=== PATIENT | male | born 2005 | race African-American/Black ===

== ENCOUNTER 2024-04-27 05:19 | Emergency (ER) | payer OTHER, SELFPAY ==
[2024-04-27 06:07] LABS: Absolute Eosinophils 0.1 K/uL (0-0.5); Absolute Lymphocytes (CBC) 2.3 K/uL (0.7-4.9); Absolute Monocytes 0.3 K/uL (0.1-1.3); Basophils % 0.7 % (0-1.3); Eosinophils % 2.1 % (0-4.4); Hematocrit 45.1 % (39.6-49.0); Hemoglobin 15.3 g/dL (13.6-17.9); Lymphocytes % 48.4 % (15.3-44.8); MCH 27.2 pg (27.0-35.0); MCV 80.1 fL (80-100); MPV 8.2 fL (7.6-11.3); Monocytes % 6.7 % (3.3-12.3); Neutrophils % 42.1 % (41.7-73.7); Nucleated Red Blood Cells % 0.2 % (0-0); Platelets 243 thou/uL (152-406); RBC Red Blood Cell Count 5.63 M/uL (4.33-5.43); Red Cell Distribution Width 13.2 % (12.1-15.2)
[2024-04-27 06:19] LABS: PT Prothrombin Time 12.3 SECONDS (9.4-12.5); PTT, Activated Partial Thromb 31.7 SECONDS (24.3-36.9); Protime INR 1.1
[2024-04-27 06:30] LABS: ALT/SGPT 16 U/L (16-61); AST/SGOT 12 U/L (15-37); Albumin 3.9 g/dL (3.4-5.0); Albumin/Globulin Ratio 1.1 (1.1-1.8); Alkaline Phosphatase 95 U/L (45-117); Anion Gap 7.8 mEq/L (5.0-15.0); BUN Blood Urea Nitrogen 8 mg/dL (7-18); Bicarbonate 28 mEq/L (21-32); Bilirubin Direct 0.2 mg/dL (0-0.2); Bilirubin Indirect, Calculated 0.4 mg/dL (0.2-0.8); Bilirubin Total 0.6 mg/dL (0.2-1.0); Globulin 3.7 g/dL (2.3-3.5); Glomerular Filtration Rate 108 ml/min (=/>90); Glucose Level 95 mg/dL (74-106); Potassium 3.8 mEq/L (3.5-5.1); Protein, Total 7.6 g/dL (6.4-8.2); Sodium Level 139 mEq/L (136-145)
[2024-04-27 07:57] LABS: Specific Gravity 1.008 (1.005-1.030); Urine Bilirubin NEGATIVE (Negative); Urine Blood Negative (Negative); Urine Clarity Clear (Clear); Urine Color Light-Yellow (Yellow); Urine Glucose NEGATIVE (Negative); Urine Ketones NEGATIVE (Negative); Urine Microscopic Reflex YN NO UMIC; Urine Nitrite NEGATIVE (Negative); Urine Protein NEGATIVE (Negative); Urine Urobilinogen Normal (Normal)
[2024-04-27 08:05] LABS: Barbiturates NEGATIVE (NEGATIVE); Benzodiazepines NEGATIVE (NEGATIVE); Cocaine NEGATIVE (NEGATIVE); METHAMPHETAM NEGATIVE (NEGATIVE); Methadone NEGATIVE (NEGATIVE); Opiates NEGATIVE (NEGATIVE); Phencyclidine NEGATIVE (NEGATIVE); THC Cannibis POSITIVE (NEGATIVE)
--- NOTE | 2024-04-27 14:46 | EDPHYS ---
Physician Documentation [facility] Name: Demetrius Blanca Age: 19 yrs Sex: Male : 2005 Arrival Date: 04/27/2024 Time: 05:19 Bed 19 Private MD: ED Physician Jason Ordoñez HPI: 04/27 05:34 This 19 yrs old Black Male presents to ER via Unassigned with complaints of Depression sp4 , suicidal ideation . 05:42 19-year-old male presents with complaint of depression with suicidal ideation.. sp4 Historical: - Allergies: 05:19 No Known Allergies; lg3 - Home Meds: 05:19 None [Active]; lg3 - PMHx: 05:19 None; lg3 - PSHx: 05:19 None; lg3 - Immunization history:: Adult Immunizations up to date. - Infectious Disease History:: Denies. - Family history:: not pertinent. - Social history:: Smoking status: Reported history of juuling and/or vaping. Patient uses alcohol, but reports only rare drinking. Patient/guardian denies using street drugs. ROS: 05:42 Constitutional: Negative for fever, chills, and weight loss, positive for depression sp4 and suicidal ideation 05:42 All other systems are negative, Exam: 05:42 Constitutional: This is a well developed, well nourished patient who is awake, alert, sp4 and in no acute distress. Head/Face: Normocephalic, atraumatic. Eyes: Pupils equal round and reactive to light, extra-ocular motions intact. Lids and lashes normal. Conjunctiva and sclera are not injected. Cornea within normal limits. Periorbital areas with no swelling, redness, or edema. ENT: Nares patent. No nasal discharge, no septal abnormalities noted. Tympanic membranes are normal and external auditory canals are clear. Oropharynx with no redness, swelling, or masses, exudates, or evidence of obstruction, uvula midline. Mucous membranes moist. Neck: Trachea midline, no thyromegaly or masses palpated, and no cervical lymphadenopathy. Supple, full range of motion without nuchal rigidity, or vertebral point tenderness. Chest/axilla: Normal chest wall appearance and motion. Nontender with no deformity. No lesions are appreciated. Cardiovascular: Regular rate and rhythm with a normal S1 and S2. No gallops, murmurs, or rubs. Normal PMI, no JVD. No pulse deficits. Respiratory: Lungs have equal breath sounds bilaterally, clear to auscultation and percussion. No rales, rhonchi or wheezes noted. No increased work of breathing, no retractions or nasal flaring. Abdomen/GI: Soft, with normal bowel sounds. No distension or tympany. No guarding or rebound. No evidence of tenderness throughout. Back: No spinal tenderness. No costovertebral tenderness. Skin: Warm, dry with normal turgor. Normal color with no rashes, no lesions, and no evidence of cellulitis. MS/ Extremity: Pulses equal, no cyanosis. Neurovascular intact. Full, normal range of motion. Neuro: Awake and alert, GCS 15, oriented to person, place, time, and situation. Cranial nerves II-XII grossly intact. Motor strength 5/5 in all extremities. Sensory grossly intact. Psych: Awake, alert, with orientation to person, place and time. Behavior, mood, and affect are within normal limits 06:50 ECG was reviewed by the Attending Physician. EKG 0609 normal sinus rhythm rate 60. sp4 Vital Signs: 05:19 BP 116 / 74; Pulse 74; Resp 16 S; Temp 98.6(O); Pulse Ox 99% on R/A; Weight 70.31 kg lg3 (R); Height 5 ft. 11 in. (R); Pain 0/10; 16:10 BP 121 / 69; Pulse 79; Resp 16; Temp 98.4; Pulse Ox 99% ; bp 16:28 BP 114 / 72; Pulse 60; Resp 18; Temp 98.1; Pulse Ox 98% on R/A; nh2 05:19 Body Mass Index 21.62 (70.31 kg, 180.34 cm) lg3 05:19 Pain Scale: Adult lg3 Nichole Coma Score: 05:42 Eye Response: spontaneous(4). Motor Response: obeys commands(6). Verbal Response: sp4 oriented(5). Total: 15. MDM: 05:43 Differential diagnosis: drug withdrawal. acute psychotic break, depression, psychosis sp4 secondary to non-compliance. Data reviewed: vital signs, nurses notes, old medical records, lab test result(s). Consideration of Admission/Observation Escalation of care including admission/observation considered. ED course: Patient awaiting for [place] evaluation. 06:50 Transition of care: After a detail discussion of the patient's case, care is sp4 transferred to Ford Kelly MD. 07:14 Medical Screening Exam initiated rt 07:31 Transition of care: After a detail discussion of the patient's case, care is sp4 transferred to Jason Ordoñez MD. 14:46 Management of patient was discussed with the following: Behavioral Health Provider: rt Recommends inpatient hospitalization. 04/27 05:35 Order name: Acetaminophen; Complete Time: 07: sp4 04/27 05:35 Order name: Basic Metabolic Panel; Complete Time: : sp4 04/27 05:35 Order name: CBC with Diff; Complete Time: sp4 04/27 05:35 Order name: ETOH Level; Complete Time: : sp4 04/27 05:35 Order name: Hepatic Function; Complete Time: : sp4 04/27 05:35 Order name: PT-INR; Complete Time: sp4 04/27 05:35 Order name: Ptt, Activated; Complete Time: : sp4 04/27 05:35 Order name: Salicylate; Complete Time: 07: sp4 04/27 05:35 Order name: Urinalysis w/ reflexes; Complete Time: 08:52 sp4 04/27 05:35 Order name: Urine Drug Screen; Complete Time: 08:52 sp4 04/27 05:35 Order name: EKG; Complete Time: 05:35 sp4 04/27 05:35 Order name: EKG - Nurse/Tech; Complete Time: 06:22 sp4 04/27 05:35 Order name: IV Saline Lock; Complete Time: 05:58 sp4 04/27 05:35 Order name: Labs collected and sent; Complete Time: 05:58 sp4 04/27 05:35 Order name: Suicide Precautions; Complete Time: 06:23 sp4 04/27 05:35 Order name: Suicide Screening ([place]); Complete Time: 06:23 sp4 EC:09 Rate is 60 beats/min. Rhythm is regular, Normal Sinus Rhythm. QRS [place] is Normal. NM sp4 interval is normal. QRS interval is normal. QT interval is normal. No Q waves. T waves are Normal. No ST changes noted. Clinical impression: Normal ECG. Interpreted by me. Reviewed by me. Administered Medications: No medications were administered Disposition Summary: 04/27/24 14:45 Transfer Ordered Notes: Transfer Location: Psych Facility rt Reason: Higher level of care rt Condition: Stable rt Problem: new rt Symptoms: are unchanged rt Accepting Physician: (04/27/24 16:37) bp Diagnosis - Suicidal ideations rt Forms: - Medication Reconciliation Form rt - SBAR form rt Signatures: Dispatcher [employer] EDAbimael Dorantes, RN RN bp Avril Moya RN RN lg3 Jason Ordoñez MD MD rt Guanakito Suarez MD MD sp4 Corrections: (The following items were deleted from the chart) 05:49 05:42 Family history: not pertinent, sp4 lg3 16:37 14:45 rt bp
--- NOTE | 2024-04-27 14:46 | ER ---
Nurse's Notes [facility] Name: Demetrius Blanca Age: 19 yrs Sex: Male : 2005 Arrival Date: 04/27/2024 Time: 05:19 Bed 19 Private MD: Diagnosis: Suicidal ideations Presentation: 04/27 05:19 Chief complaint: Patient states: Suicidal thoughts X1 month. worse at night. denies lg3 triggering event. plan is to overdose on narcotics/pain medications. previous attempt in 2014 with overdose of Tylenol PM. not receiving treatment at this time. Denies HI at this time. 05:19 Method Of Arrival: Law Enforcement: [place] [employer] lg3 05:19 Coronavirus screen: Client denies travel out of the [place] in the last 14 days. At this lg3 time, the client does not indicate any symptoms associated with coronavirus-19. Ebola Screen: No symptoms or risks identified at this time. Risk Assessment: Do you want to hurt yourself or someone else? Patient reports desire/thoughts of hurting themselves or someone else. Provider notified. Onset of symptoms is unknown. 05:19 Acuity: KAROLYN 2 lg3 05:19 Initial Sepsis Screen: Does the patient meet any 2 criteria? No. Patient's initial lg3 sepsis screen is negative. Does the patient have a suspected source of infection? No. Patient's initial sepsis screen is negative. Triage Assessment: 05:19 General: Appears in no apparent distress. comfortable, well groomed, Behavior is calm, lg3 cooperative. Pain: Denies pain. EENT: No deficits noted. No signs and/or symptoms were reported regarding the EENT system. Neuro: No deficits noted. [place] Agitation-Sedation Scale (RASS): 0 - Alert and Calm Level of Consciousness is awake, alert, obeys commands, Oriented to person, place, time, situation. Cardiovascular: No deficits noted. Denies chest pain, shortness of breath, Capillary refill < 3 seconds Clubbing of nail beds is absent JVD is absent Patient's skin is warm and dry. Respiratory: No deficits noted. Airway is patent Respiratory effort is even, unlabored, Respiratory pattern is regular, symmetrical. GI: No deficits noted. No signs and/or symptoms were reported involving the gastrointestinal system. : No signs and/or symptoms were reported regarding the genitourinary system. Derm: No deficits noted. No signs and/or symptoms reported regarding the dermatologic system. Skin is intact, is healthy with good turgor, Skin is dry, Skin is normal, Skin temperature is warm. Musculoskeletal: No deficits noted. No signs and/or symptoms reported regarding the musculoskeletal system. Circulation, motion, and sensation intact. Range of motion: intact in all extremities. Historical: - Allergies: 05:19 No Known Allergies; lg3 - Home Meds: 05:19 None [Active]; lg3 - PMHx: 05:19 None; lg3 - PSHx: 05:19 None; lg3 - Immunization history:: Adult Immunizations up to date. - Infectious Disease History:: Denies. - Family history:: not pertinent. - Social history:: Smoking status: Reported history of juuling and/or vaping. Patient uses alcohol, but reports only rare drinking. Patient/guardian denies using street drugs. Screenin:19 [facility] ED Fall Risk Assessment (Adult) History of falling in the last 3 months, lg3 including since admission No falls in past 3 months (0 pts) Confusion or Disorientation No (0 pts) Intoxicated or Sedated No (0 pts) Impaired Gait No (0 pts) Mobility Assist Device Used No (0 pt) Altered Elimination No (0 pt) Score/Fall Risk Level 0 - 2 = Low Risk Oriented to surroundings, Maintained a safe environment, Educated pt \\T\\ family on fall prevention, incl call for assistance when getting out of bed, Assessed \\T\\ reinforced patient's understanding of fall precautions, Provided non-skid footwear. Abuse screen: Denies threats or abuse. Denies injuries from another. Nutritional screening: No deficits noted. Tuberculosis screening: No symptoms or risk factors identified. Assessment: 05:19 General: see triage assessment. lg3 07:00 General: Appears in no apparent distress. comfortable, Behavior is calm, cooperative. ss Pain: Denies pain. Neuro: Level of Consciousness is awake, alert, obeys commands. Respiratory: Airway is patent Respiratory effort is even, unlabored, Respiratory pattern is regular, symmetrical. GI: No signs and/or symptoms were reported involving the gastrointestinal system. Derm: Skin is pink, warm \\T\\ dry. normal. 13:15 Reassessment: [facility] AT B/S. bp 14:45 Reassessment: INPATIENT RECOMMENDED BY [facility]. bp 15:10 Reassessment: Report given to Michael Good RN at [facility]. Accepting physician ss is Maria Rodriguez. Awaiting EMS transport. Pt remains voluntary. 16:10 Reassessment: TRANSFER IN PROCESS FOR [facility]. bp 16:36 Reassessment: PT CHAN WITH EMS. bp Psych: 05:19 [place] Suicide Severity Screening: In the past month, have you wished you were lg3 or wished you could go to sleep and not wake up? Patient responds "yes." "In the past month, have you actually had any thoughts of killing yourself?" Patient responds "yes." "In your lifetime, have you ever done anything, started to do anything, or prepared to do anything to end your life?" Patient responds "yes." Patient reports suicidal intent within 3 past months. Subjective: Patient's mood is hopeless, Delusions are denied, Hallucinations are denied Having thoughts of suicide. Plan for suicide is overdose. Objective: Patient is cooperative, Speech is normal, soft, Affect is appropriate. Interventions: Removed personal items and placed in bag. Patient placed in hospital gown. Urine collected and sent for urine drug test. Belonging list filled out. Safety Checks: Personal items have been removed. No visitors are present at this time. pt place in chair in line of sight of nurses station. Pt denies substance abuse. Commitment: Patient will be a voluntary commitment. Vital Signs: 05:19 BP 116 / 74; Pulse 74; Resp 16 S; Temp 98.6(O); Pulse Ox 99% on R/A; Weight 70.31 kg lg3 (R); Height 5 ft. 11 in. (R); Pain 0/10; 16:10 BP 121 / 69; Pulse 79; Resp 16; Temp 98.4; Pulse Ox 99% ; bp 16:28 BP 114 / 72; Pulse 60; Resp 18; Temp 98.1; Pulse Ox 98% on R/A; nh2 05:19 Body Mass Index 21.62 (70.31 kg, 180.34 cm) lg3 05:19 Pain Scale: Adult lg3 Nichole Coma Score: 05:42 Eye Response: spontaneous(4). Motor Response: obeys commands(6). Verbal Response: sp4 oriented(5). Total: 15. ED Course: 05:19 Safety Checks: Personal items have been removed. There are no family/friend visitors at lg3 this time Sitter present at this time. 05:19 Arm band placed on right wrist. Patient placed in view of staff members. lg3 05:19 Patient has correct armband on for positive identification. Valuables inventory done. lg3 Locked in safe. See valuables checklist. 05:28 Patient arrived in ED. lg3 05:34 Guanakito Suarez MD is Attending Physician. sp4 05:47 Avril Moya, JACKSON is Primary Nurse. lg3 05:48 Triage completed. lg3 05:58 Missed attempt(s): 20 gauge in right antecubital area. Bleeding controlled, band aid rv1 applied, catheter tip intact. 05:58 Inserted saline lock: 22 gauge in right antecubital area, using aseptic technique. rv1 Blood collected. Flushed with 10 mL NS. 05:58 Acetaminophen Sent. rv1 05:58 Basic Metabolic Panel Sent. rv1 05:58 CBC with Diff Sent. rv1 05:58 ETOH Level Sent. rv1 05:58 Hepatic Function Sent. rv1 05:58 PT-INR Sent. rv1 05:58 Ptt, Activated Sent. rv1 05:58 Salicylate Sent. rv1 07:42 Urine collected: clean catch specimen, clear, Amount Voided: 120mL. nh2 07:42 Urinalysis w/ reflexes Sent. nh2 07:42 Urine Drug Screen Sent. nh2 10:56 [facility] contacted to coordinate for mental health screen. em1 14:37 [facility] concludes their screening and recommends inpatient therapy. em1 14:45 Attending Physician role handed off by Guanakito Suarez MD rt 14:45 Jason Ordoñez MD is Attending Physician. rt 14:53 pt clinical information faxed to [facility]. em1 14:58 Pt clinical information faxed to [facility]. em1 16:10 No provider procedures requiring assistance completed. IV discontinued, intact, bp bleeding controlled, No redness/swelling at site. Pressure dressing applied. 16:12 Provided Education on: N/A. bp Administered Medications: No medications were administered Medication: 16:10 VIS not applicable for this client. bp Outcome: 14:45 ER care complete, transfer ordered by . rt 16:10 Transferred by ground EMS Transfer form completed. bp 16:10 Condition: stable 16:10 Instructed on the need for transfer, 16:37 Patient left the ED. bp Signatures: Khris Simpson em1 Kala Hardin, RN RN ss Abimael Lewis RN RN bp Avril Moya RN RN lg3 Jason Ordoñez MD MD rt Arabella Gordon rv1 Guanakito Suarez MD MD sp4 [facility], [place] [address] Corrections: (The following items were deleted from the chart) 05:49 05:42 Family history: not pertinent, sp4 lg3
[2024-04-27 18:42] VITALS: BP 114/72; TEMP 98.1; O2SAT 98
--- NOTE | 2024-05-01 12:10 | EKG ---
Test Date: 2024-04-27 Test Time: 06:09:08 Child Care Education Coordinator: JAKUB MEASUREMENT RESULTS: Intervals: Rate: 60 ID: [id number] QRSD: 90 QT: 384 QTc: 384 [place]: P: 68 ID: [id number] QRS: 86 T: 48 INTERPRETIVE STATEMENTS: Normal sinus rhythm with sinus arrhythmia Normal ECG No previous ECG available for comparison Electronically Signed On 05-01-24 12:04:10 NON DESTRUCTIVE TESTING TECHNICIAN by Tyrese Holland
== END 2024-04-27 16:37 ==
LOC: ER 05:19
DX: R45.851 Suicidal ideations (principal); F32.A Depression, unspecified
CPT/HCPCS: 36415; 80048; 80076; 80143; 80179; 80307; 81003; 82077; 85025; 85610; 85730; 93005; 99285